=== PATIENT | male | born 1995 | race Asian ===

== ENCOUNTER 2022-12-08 17:14 | Emergency (ER) | payer OTHER ==
[~2022-12-08] VITALS: Ht 175.3 cm; Wt 97.5 kg
--- NOTE | 2022-12-08 17:24 | NUR ---
APatient AOx4 able to express his concerns. Discussed plan of care, patient verbalized agreement.
[2022-12-08] MEDS ORDERED: HYDROCODONE/APAP 5/325MG TABLET ONE (17:37)
[2022-12-08] MEDS: HYDROCODONE/APAP 5/325MG TABLET PO ONE (17:38)
--- NOTE | 2022-12-08 19:26 | NUR ---
RECEIVED REPORT FROM VIVEK CARRASCO FOR JEISON
--- NOTE | 2022-12-08 19:57 | NUR ---
EMT AT BEDSIDE FOR SPLINTING
[2022-12-08 20:18] VITALS: BP 122/79
--- NOTE | 2022-12-08 20:25 | NUR ---
PT DISCHARGED TO [employer], VSS, IN NAD.
== END 2022-12-08 20:28 ==
LOC: ER 17:19
DX: S52.501A Unspecified fracture of the lower end of right radius, initial encounter for closed fracture (principal); S50.311A Abrasion of right elbow, initial encounter; S80.212A Abrasion, left knee, initial encounter; M25.511 Pain in right shoulder; M25.521 Pain in right elbow; J45.909 Unspecified asthma, uncomplicated; V00.131A Fall from skateboard, initial encounter; Y93.51 Activity, roller skating (inline) and skateboarding; Y92.89 Other specified places as the place of occurrence of the external cause; Y99.8 Other external cause status
CPT/HCPCS: 73030-TC; 73080-TC; 73110